=== PATIENT | female | born 1985 | race Caucasian/White ===

== ENCOUNTER → 2017-03-04 | Outpatient (CLI) | payer BC ==
[2017-03-04 13:00] LABS: VITAMIN D 25-HYDROXY 88.4 NG/ML (30-100)
== END ==
LOC: MOB LAB 11:27
PROVIDERS: ATTEND Nurse Practitioner Family
DX: R53.82 Chronic fatigue, unspecified (principal); E03.9 Hypothyroidism, unspecified
CPT/HCPCS: 36415; 82306; 84443

== ENCOUNTER → 2017-03-25 | Outpatient (CLI) | payer BC ==
--- NOTE | 2017-03-25 10:44 | EKG ---
[address] [address] Measurements Intervals [place] Rate: 71 P: -18 [place]: 127 QRS: -26 QRSD: 102 T: 11 QT: 409 QTc: 431 Interpretive Statements SINUS RHYTHM BORDERLINE LEFT AXIS DEVIATION [QRS AXIS < -20] Compared to ECG 06/23/2016 01:12:54 No significant changes Electronically Signed On 03-28-17 07:54:31 MDT by Elliott Lopez MD [id number]
== END ==
LOC: MOB EKG 10:31
PROVIDERS: ATTEND Nurse Practitioner Family
DX: I10 Essential (primary) hypertension (principal); F41.1 Generalized anxiety disorder; F17.200 Nicotine dependence, unspecified, uncomplicated
CPT/HCPCS: 93005; 93010

== ENCOUNTER 2018-07-13 16:51 | Observation (INO) ==
--- NOTE | 2018-07-13 17:08 | PDOC ---
Nausea/Vomiting/Diarrhea HPI - General Chief Complaint: Nausea / Vomiting / Diarrhea Stated Complaint: N/V/D FLANK PAIN Date Seen by Provider: 07/13/18 Time Seen by Provider: 17:00 Source: POSITIVE: Patient Exam Limitations: POSITIVE: No limitations Nurse's Notes Reviewed & Considered: Yes - History of Present Illness Initial Comments: This is a well-developed, well-nourished, 33-year-old female, complaining of abdominal pain with nausea vomiting and diarrhea. Patient awoke at 0500 hrs. this morning to come to work. As she was showering she developed abdominal pain with nausea vomiting and then diarrhea. She's had over 9 episodes of vomiting today and her pain has gotten worse. She denies any headache, no sore throat, no chest pain or shortness of breath, no hematuria or dysuria, no rashes. Patient is also complaining of bilateral hip pain. Body Location Affected: REPORTS: Abdomen Timing: REPORTS: Abrupt Duration: <24 hours Severity: Severe Quality: REPORTS: Cramping, "Pain", Sharpness, Tenderness Abdominal Pain Onset Location: REPORTS: Generalized abdomen Abdominal Pain Radiation: REPORTS: RUQ, LUQ, Epigastric Context: REPORTS: None Modifying Factors: improves with: Nothing Associated Symptoms: REPORTS: Frequent Vomiting, Diarrhea, Abdominal Pain, Cramping, Epigastric Pain, RUQ Pain, LUQ Pain Similar Symptoms Previously: No Recent Care Received: REPORTS: Denies Any Prior Injuries Related to Current Complaint?: No - Patient Home Medications Home Medications: Home Medications Cyanocobalamin/Folic Acid [B-12 1,000 Mcg Sub Tablet] 1 ea SL DAILY tab biotin 10,000 mcg capsule 10,000 mcg PO QDAY ea 11/01/17 calcium carbonate 500 mg calcium (1,250 mg) tablet 500 mg PO DAILY tab calcium phosphate-vitamin D3 250 mg calcium-500 unit chewable tablet 1 tab PO DAILY 11/01/17 cholecalciferol (vitamin D3) 2,000 unit/drop oral drops 2,000 unit PO QDAY 11/01 pyridoxine (vitamin B6) 50 mg tablet 50 mg PO QDAY 11/02/17 thiamine mononitrate (vitamin B1) 100 mg tablet 100 mg PO DAILY 11/02/17 norgestimate 0.25 mg-ethinyl estradiol 35 mcg tablet 1 tab PO QDAY #28 tab 06/14 /18 levothyroxine 75 mcg tablet 75 mcg PO DAILY #30 tab 02/23/18 amlodipine 2.5 mg tablet 2.5 mg PO DAILY #90 tab 04/20/18 clonazepam 1 mg tablet 0.5 mg PO QDAY PRN #30 tab 04/20/18 hydrocodone 7.5 mg-acetaminophen 325 mg tablet 1 tab PO Q6H PRN #45 tab escitalopram 10 mg tablet 10 mg PO DAILY #30 tab 06/21/18 Spironolactone 25 mg PO BEDTIME 07/13/18 - Patient Allergies Allergies/Adverse Reactions: Allergies 3 Allergy/AdvReac Type Severity Reaction Status Date / Time Penicillins Allergy Intermediate hives/swell Verified 07/13/18 17:01 ing buspirone HCl [From BuSpar] AdvReac Intermediate NOT Verified 07/13/18 17:01 APPLICABLE NSAIDS (Non-Steroidal AdvReac NOT Verified 07/13/18 17:01 Anti-Inflamma APPLICABLE Past Medical History - heen HEENT History: Denies History Cardiovascular History: Hypertension, Hyperlipidemia Respiratory History: Denies History Gastrointestinal History: Irritable Bowel Syndrome, Gallbladder Disease Genitourinary History: Denies History Endocrine History: Hypothyroidism Additional Endocrine History: INSULIN RESISTANCE Musculoskeletal History: Denies History Prosthesis or Implant: No Neurological History: Denies History Blood Disorders: Denies History Psychiatric History: Anxiety Disorders History of Sexually Transmitted Diseases: No Cancer History: Denies History History of MDRO: No History of Other Communicable Diseases: No Alcohol Use: Occasionally In the Past 12 Months, Have Used or Abuse Any Substance: None Previous Surgical History: Yes Type / Date of Surgery: TONSILLECTOMY. DENTAL Anesthesia Reactions: No Malignant Hyperthermia: No Significant Family History: Cancer, Hypertension ROS - Limitations ROS Limitations: No Limitations Constitution: REPORTS: Chills, Diaphoresis Cardiovascular: REPORTS: Denies Cardiac Symptoms Respiratory: REPORTS: Denies Resp Symptoms Neurological: REPORTS: Denies Neuro Symptoms Gastrointestinal: REPORTS: Abdominal Pain, Nausea, Vomitting, Diarrhea Endocrine: REPORTS: Denies Symptoms Musculoskeletal: REPORTS: Joint Pain (Bilateral hip pain) Genitourinary: REPORTS: Denies Symptoms Eyes: REPORTS: Denies Symptoms ENT: REPORTS: Denies Symptoms Skin: REPORTS: Denies Skin Symptoms Lympathic: REPORTS: Denies Lympathic Symptoms Immunologic: POSITIVE: Denies Symptoms Psychiatric: POSITIVE: Denies Psych Symptoms Nausea/Vomiting/Diarrhea Exam - General Appearance General Appearance: POSITIVE: Alert, Cooperative, No Evidence of Trauma, Severe Distress - HEENT HEENT: POSITIVE: Head Inspection Nml, Eyes Inspection Nml, Ears Inspection Nml, Nose Inspection Nml, Oral/Dental Inspect. Nml, Pharynx Inspect. Nml, PERRL, EOMI - Neck Neck: POSITIVE: Supple, Normal Inspection - Respiratory Respiratory: POSITIVE: No Respiratory Distress, Breath Sounds Normal, Chest Non- Tender - Cardiovascular Cardiovascular: POSITIVE: Regular Rate and Rhythm, Heart Sounds Normal, Strong Pulses Peripheral Pulses: Radial (R): 4+ - Chest Chest: POSITIVE: Non Tender - Abdomen Abdomen: Soft: (All Quadrants), (RLQ), (LLQ), No Splenomegaly: (All Quadrants), No Hepatomegaly: (All Quadrants), No Rebound: (All Quadrants), No Palpable Pulse : (All Quadrants), No Palpabale Mass: (All Quadrants), No Distention: (All Quadrants), No Rigidity: (All Quadrants), Tenderness Noted: (LUQ), (RUQ), Guarding: (All Quadrants) - Back Back: POSITIVE: Normal Inspection - Skin Skin: POSITIVE: Intact, Normal For Race, Warm, Dry, No Rash - Extremities Extremity: Non-Tender: (All Extremities), Normal ROM: (All Extremities), Normal Inspection: (All Extremities), Pelvis Stable: (All Extremities) - Neurological / Psychological Neurological: POSITIVE: Affect Apporpriate, Oriented X3, Motor Normal, Sensation Normal N/V/D Progress - Results Reviewed by me Xrays/CTs/US Reviewed by me: Yes Discussed with Radiologist: Yes Lab Results Reviewed by Me: Yes CBC and BMP: 07/13/18 17:15 07/13/18 17:15 Lab Results:: Laboratory Results 3 07/13/18 07/13/18 07/13/18 17:07 17:15 17:15 WBC 9.15 RBC 5.06 Hgb 14.7 Hct 44.8 MCV 88.5 MCH 29.1 MCHC 32.8 L RDW Std Deviation 45.2 RDW Coeff of Essie 14.2 Plt Count 206 MPV 11.6 Immature Gran % (Auto) 0.1 Neut % (Auto) 82.2 H Lymph % (Auto) 11.5 Darke % (Auto) 3.4 L Eos % (Auto) 2.6 Baso % (Auto) 0.2 Immature Gran # (Auto) 0.01 Neut # (Auto) 7.52 Lymph # (Auto) 1.05 Darke # (Auto) 0.31 Eos # (Auto) 0.24 Baso # (Auto) 0.02 WBC Morphology Comment Normal morphology Plt Morphology Comment Normal morphology RBC Morph Comment Normal morphology D-Dimer VBG pH 7.42 VBG pCO2 34 L VBG HCO3 22 VBG Base Excess -3 L Sodium 141 Potassium 4.0 Chloride 109 Carbon Dioxide 23 Anion Gap 9 BUN 12 Creatinine 0.5 Estimated GFR > 60 BUN/Creatinine Ratio 24.00 H Glucose 101 Calculated Osmolality 291.0 Lactic Acid Calcium 9.1 Magnesium 2.1 Total Bilirubin 1.2 AST 25 ALT 28 Alkaline Phosphatase 53 CK-MB (CK-2) Troponin I Handheld C-Reactive Protein 2.7 H NT-Pro-B Natriuret Pep 75.1 Total Protein 6.3 Albumin 3.9 Globulin 2.4 L Albumin/Globulin Ratio 1.60 Amylase 50 Lipase 86 TSH Serum HCG, Qual 3 07/13/18 07/13/18 07/13/18 17:15 17:15 17:15 WBC RBC Hgb Hct MCV MCH MCHC RDW Std Deviation RDW Coeff of Essie Plt Count MPV Immature Gran % (Auto) Neut % (Auto) Lymph % (Auto) Darke % (Auto) Eos % (Auto) Baso % (Auto) Immature Gran # (Auto) Neut # (Auto) Lymph # (Auto) Darke # (Auto) Eos # (Auto) Baso # (Auto) WBC Morphology Comment Plt Morphology Comment RBC Morph Comment D-Dimer VBG pH VBG pCO2 VBG HCO3 VBG Base Excess Sodium Potassium Chloride Carbon Dioxide Anion Gap BUN Creatinine Estimated GFR BUN/Creatinine Ratio Glucose Calculated Osmolality Lactic Acid 1.1 Calcium Magnesium Total Bilirubin AST ALT Alkaline Phosphatase CK-MB (CK-2) Troponin I Handheld C-Reactive Protein NT-Pro-B Natriuret Pep Total Protein Albumin Globulin Albumin/Globulin Ratio Amylase Lipase TSH 0.486 Serum HCG, Qual Negative 3 07/13/18 07/13/18 07/13/18 17:29 17:29 17:29 WBC RBC Hgb Hct MCV MCH MCHC RDW Std Deviation RDW Coeff of Essie Plt Count MPV Immature Gran % (Auto) Neut % (Auto) Lymph % (Auto) Darke % (Auto) Eos % (Auto) Baso % (Auto) Immature Gran # (Auto) Neut # (Auto) Lymph # (Auto) Darke # (Auto) Eos # (Auto) Baso # (Auto) WBC Morphology Comment Plt Morphology Comment RBC Morph Comment D-Dimer 0.65 H VBG pH VBG pCO2 VBG HCO3 VBG Base Excess Sodium Potassium Chloride Carbon Dioxide Anion Gap BUN Creatinine Estimated GFR BUN/Creatinine Ratio Glucose Calculated Osmolality Lactic Acid Calcium Magnesium Total Bilirubin AST ALT Alkaline Phosphatase CK-MB (CK-2) 0.65 Troponin I Handheld 0.000 C-Reactive Protein NT-Pro-B Natriuret Pep Total Protein Albumin Globulin Albumin/Globulin Ratio Amylase Lipase TSH Serum HCG, Qual EKG Interpreted/Reviewed By Me:: Yes (sinus rhythm at 89 beats a minute no ST elevations.) EKG Interpretation:: POSITIVE: Normal Sinus Rhythm, Normal ST/T - Patient's Progress Pain Medication Addressed: POSITIVE: Yes Status: POSITIVE: Improved MDM / ED Course: Patient was evaluated, an IV started, blood drawn and sent to the lab for studies, CT and EKG were obtained. Findings: CBC is within normal limits. D-dimer 0.65. Blood gases show pH is 7.42, PCO2 34, HCO3 22, base excess of -3. Magnesium is 2.1. Lactic acid is 1.1. EKG, per my interpretation, shows a sinus rhythm with a rate of 89 beats a minute and no ST elevations. Cardiac enzymes show a CK-MB of 0.65, troponin of 0.000. CMP is unremarkable. CRP is elevated at 2.7. BNP is normal at 7.5. Amylase is 50, lipase is 86. Beta hCG is negative. TSH is normal at 0.486. CT scan of her abdomen shows a 5 x 6 x [address] scan of her chest shows no acute cardiopulmonary decompensation. Assessment: #1 nausea vomiting and diarrhea. #2 abdominal pain. #3 ovarian cyst. #4 chest pain with normal enzymes and EKG. Plan: Patient being admitted for rule out myocardial infarction and for intractable abdominal pain. - Consult Consult (If Yes, Name of Consulting MD & Time Called): Yes (Dr. Esparza) Consulting MD will see pt:: POSITIVE: [facility] [place] Counseled: POSITIVE: Patient, Family, RE: Lab Results, RE: Radiology Results, RE : DX, RE: Need for F/U Patient Care Time - Estimated PCT Patient Care Time (In Minutes): 45 Vital Signs - Recent Vital Signs Vital Signs: Vital Signs (Last 8 hours) Temp Pulse Resp BP Pulse Ox 07/13/18 16:58 97.7 F 83 20 120/79 97 - VS Reviewed Vital Signs Reviewed: Yes Discharge Clinical Impression: Chest pain, Abdominal pain, Nausea and vomiting, Diarrhea, Ovarian cyst Discharge Disposition: Admit to Observation Condition: Stable Date Decision to Admit to Inpatient: 07/13/18 Time Decision to Admit to Inpatient: 19:29
[2018-07-13] MEDS ORDERED: MORPHINE SULFATE 4 MG/1 ML IVP ONE (17:09)
[2018-07-13] MEDS ORDERED: ONDANSETRON 4 MG/2 ML VIAL IVP ONE (17:09)
[2018-07-13] MEDS ORDERED: Sodium Chloride 0.9% 1,000 ML PRIMARY IV ONE ×2 (17:09→18:04)
[2018-07-13 17:16] LABS: BASOPHILS # (AUTO) 0.02 10*3/UL; BASOPHILS % (AUTO) 0.2 % (0-1); EOSINOPHILS # (AUTO) 0.24 10*3/UL; EOSINOPHILS % (AUTO) 2.6 % (0-8); Hematocrit [HCT] 44.8 % (37.0-47.0); Hemoglobin [HGB] 14.7 g/dL (12.0-16.0); LYMPHOCYTES # (AUTO) 1.05 10*3/uL; MEAN CORPUSCULAR HEMOGLOBIN 29.1 PG (27-31); MEAN CORPUSCULAR HGB CONC 32.8 g/dL (33-37); MEAN CORPUSCULAR VOLUME 88.5 FL (81-99); MEAN PLATELET VOLUME 11.6 FL (7.4-12.2); MONOCYTES # (AUTO) 0.31 10*3/UL (0.3-0.8); MONOCYTES % (AUTO) 3.4 % (5-15); NEUTROPHILS # (AUTO) 7.52 10*3/UL; NEUTROPHILS % (AUTO) 82.2 % (50-80); RED BLOOD COUNT 5.06 10^6/uL (4.20-5.40)
[2018-07-13 17:17] LABS: VENOUS PH 7.42 (7.32-7.42)
[2018-07-13 17:25] LABS: BLOOD UREA NITROGEN 12 mg/dL (7-22); LIPASE 86 IU/L (23-300); SERUM ALBUMIN 3.9 g/dL (3.5-4.8)
[2018-07-13] MEDS ORDERED: ASPIRIN 81 MG (BABY) CHEWABLE TABLET PO ONE (17:29)
[2018-07-13] MEDS ORDERED: NITROGLYCERIN 0.4 MG SL TAB (BOTTLE OF 3) SL ONE (17:29)
[2018-07-13] MEDS ORDERED: Belladon/PHENobarbital Elixir 10 ML, Lidocaine Viscous Liquid 2% 15 ML, Mag Hyd/Al Hyd/... PO ONE ×3 (17:32)
--- NOTE | 2018-07-13 17:34 | EKG ---
Measurements Intervals [place] Rate: 89 P: 242 [place]: 117 QRS: -21 QRSD: 106 T: 34 QT: 368 QTc: 415 Interpretive Statements JUNCTIONAL RHYTHM BORDERLINE LEFT AXIS DEVIATION [QRS AXIS < -20] ABNORMAL RHYTHM ECG Compared to ECG 01/13/2018 15:21:43 Junctional rhythm now present Sinus rhythm no longer present Poor R-wave progression no longer present Electronically Signed On 07-14-18 08:15:11 MST by Elliott Lopez MD [email or web address]
[2018-07-13 17:38] LABS: PLATELET MORPHOLOGY COMMENT NORMAL MORPHOLOGY (NORM); RBC MORPHOLOGY COMMENT NORMAL MORPHOLOGY (NORM); WBC MORPHOLOGY COMMENT NORMAL MORPHOLOGY (NORM)
[2018-07-13] MEDS ORDERED: fentaNYL Inj 100 MCG/2 ML VIAL IVP ONE ×2 (17:55→18:30)
--- NOTE | 2018-07-13 18:54 | DI ---
CT ANGIOGRAM OF THE CHEST, 07/13/2018 5:54 PM : Clinical History: Chest pain. Previous Exam: 06/23/2016. Scans are performed from the base of the neck to the lower lung bases with IV contrast. 75 mL of Isov ue 370 was injected IV. Proprietary automated bolus tracking software was used to verify the timing o f the injection. The base of the neck and thoracic inlet are normal. There are no abnormal axillary, supraclavicular, mediastinal, or hilar nodes. The heart is normal. The pulmonary arteries are normal. There is no pulm onary arterial hypertension. There is no evidence of pulmonary embolism or pulmonary infarction. The lungs are clear and there are no pulmonary nodules or masses. There is severe kyphosis of the upper t horacic spine with an old T10 compression fracture. 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 The bones appear osteoporotic. READIN. Normal CTA of the chest. There are no pulmonary emboli or pulmonary infarcts. 2. Severe upper thoracic kyphosis with an old compression fracture of T10
[2018-07-13] MEDS ORDERED: HYDROmorphone 2 MG/1 ML IVP ONE ×2 (18:56→19:23)
--- NOTE | 2018-07-13 19:10 | DI ---
CT ABDOMEN SCAN WITH IV CONTRAST, 07/13/2018 5:09 PM : Clinical History: Abdominal pain. Nausea, vomiting, and diarrhea. Previous Exam: None at this facility. IV Contrast: Same bolus used for CTA of the chest. Oral Contrast: No oral contrast ordered. Rectal Contrast: No rectal contrast ordered. Lungs: No infiltrate or effusion. Stomach: Status post gastric bypass surgery. No obstruction. No internal hernia. Liver: Hepatomegaly. Fatty infiltration. Gallbladder: Status post cholecystectomy. Common duct measures 6 mm. Adrenal Glands: Normal. Spleen: Splenomegaly. Pancreas: Normal. Kidneys: Normal size, shape, position and contour. No hydronephrosis or hydroureter. No renal or uret eral calculi. Lymph Nodes: Normal. Ascites: No ascites. READIN. Hepatosplenomegaly with mild-moderate diffuse fatty infiltration of the liver. 2. Status post gastric bypass surgery without evidence of obstruction or an internal hernia. CT PELVIS SCAN WITH IV CONTRAST, 07/13/2018 5:09 PM: Clinical History: See above. Previous Exam: None at this facility. Contrast: Same bolus of contrast used for CT scans of the chest and abdomen. Masses: No masses or enhancing lesions. Ascites: None. Lymph Nodes: No adenopathy. Appendix: Normal. Small Bowel: Normal small bowel, terminal ileum, and ileocecal valve. Colon: Normal. Hernias: None. Uterus: Normal. Ovaries: Enlarged: Left ovary measures 20 x 40 x 50 mm; right ovary measures 30 x 40 x 40 mm. Low-den sity 50 x 60 x 60 mm right ovary cystic lesion consistent with an ovarian cyst READIN. 50 x 60 x 60 mm low-density cystic lesion of the right ovary consistent with an ovarian cyst. Bot h ovaries are mildly enlarged. 2. No bowel obstruction or inflammatory disease of the colon.
[2018-07-13] MEDS ORDERED: HYDROcodone-APAP 7.5 MG-325 MG TABLET PO PRN (20:20)
[2018-07-13] MEDS ORDERED: ClonazePAM Tab 1 MG TABLET PO PRN (20:20)
[2018-07-13] MEDS ORDERED: ONDANSETRON 4 MG/2 ML VIAL IVP PRN (20:20)
[2018-07-13] MEDS ORDERED: LIDOCAINE W/ SODIUM BICARB 0.5 ML SYR SUBD PRN (20:20)
[2018-07-13] MEDS ORDERED: NITROGLYCERIN 0.4 MG SL TAB (BOTTLE OF 3) SL PRN (20:20)
[2018-07-13] MEDS ORDERED: CALCIUM CARBONATE 500 MG (TUMS) CHEWABLE TABLET PO PRN (20:20)
[2018-07-13] MEDS ORDERED: LORazepam 2 MG/1 ML VIAL IVP ONE (20:27)
[2018-07-13] MEDS ORDERED: PANTOPRAZOLE IV 40 MG VIAL IVP ONE (20:49)
--- NOTE | 2018-07-13 21:28 | PDOC ---
HPI - History of Present Illness Date of Service: 07/13/18 Time of Service: 21:22 Chief Complaint: Abdominal pain and chest pressure History of Present Illness: This very pleasant 33-year-old female with known right congenital dysplasia of the hip, morbid obesity status post gastric sleeve done in [place], hypertension , polycystic ovarian syndrome, and osteomyelitis of the jaw 2 who presents accompanied with her mother here this evening with complaints of acute onset of abdominal pain earlier this morning. The patient tried to work but couldn't. She stated that she had multiple episodes of vomiting through the day. She denied fever. Did complain of diarrhea. The pain is been a cramping like her squeezing nature and it comes and goes and has been quite severe. When the patient came to the emergency room, she was given morphine initially but then developed some chest pressure and she was given nitroglycerin as well. Her pain persisted despite repeated narcotics of morphine and Dilaudid. She states that she had a similar episode of chest pain back in January 2018, but this episode is worse. She's never had a stress test before. Initial troponin is negative and lipase is negative. She's had a cholecystectomy in the past. CT scan of the abdomen and pelvis showed some ovarian cysts bilaterally. It is unclear what made the pain better or worse. When asked the patient about her diet, she states that she mostly drinks for protein shakes a day, kidney most foods like mashed potatoes and Jell-O, but she admits to having chili last night and that was the last meal she had prior to onset of symptoms. She states that the chili was spicy. The patient's mother felt that the patient was probably a little on the anxious side and the patient has known anxiety disorder. She is on Lexapro for that. The patient did feel a little bit better after Ativan here and stated that she felt a little calmer. She tried Pepto-Bismol but that did not help at home. Has not had any prior endoscopy that I am aware of. Past Medical History Medical History: 1. Hypertension. 2. Hypothyroidism. 3. Polycystic ovaries. 4. Tobacco abuse. 5. Osteomyelitis of the jaw 2. 6. Congenital dysplasia of hip, right side. 7. Morbid obesity status post gastric sleeve September 2017 in [place] Surgical History: 1. History of cholecystectomy. 2. History of tonsillectomy. 3. Multiple dental procedures and tooth extractions. 4. Gastric sleeve done in [place] in September 2017 Family History: Reviewed an Not Pertinent Pertinent Family History: No history of heart disease in the family Past Social History: Smokes. Does not drink alcohol. Admits to a remote history of marijuana abuse but does not use actively at this time. 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 Not . No children. Tobacco Use: Current Some Day Smoker In the Past 12 Months, Have Used or Abuse Any of the Following Substance: None Alcohol Use: None Medication / Allergies Home Medications: Home Medications 3 Medication Instructions Recorded Confirmed Type Cyanocobalamin/Folic Acid [B-12 1 ea SL DAILY tab 02/13/14 07/13/18 History 1,000 Mcg Sub Tablet] biotin 10,000 mcg capsule 10,000 mcg PO QDAY ea 11/01/17 07/13/18 History calcium carbonate 500 mg calcium 500 mg PO DAILY tab 11/01/17 07/13/18 History (1,250 mg) tablet calcium phosphate-vitamin D3 250 1 tab PO DAILY 11/01/17 07/13/18 History mg calcium-500 unit chewable tablet cholecalciferol (vitamin D3) 2,000 2,000 unit PO QDAY 11/01/17 07/13/18 History unit/drop oral drops pyridoxine (vitamin B6) 50 mg 50 mg PO QDAY 11/02/17 07/13/18 History tablet thiamine mononitrate (vitamin B1) 100 mg PO DAILY 11/02/17 07/13/18 History 100 mg tablet norgestimate 0.25 mg-ethinyl 1 tab PO QDAY #28 tab 02/16/18 07/13/18 Rx estradiol 35 mcg tablet levothyroxine 75 mcg tablet 75 mcg PO DAILY #30 tab 02/23/18 07/13/18 Rx amlodipine 2.5 mg tablet 2.5 mg PO DAILY #90 tab 04/20/18 07/13/18 Rx clonazepam 1 mg tablet 0.5 mg PO QDAY PRN #30 tab 04/20/18 07/13/18 Rx hydrocodone 7.5 mg-acetaminophen 1 tab PO Q6H PRN #45 tab 06/07/18 07/13/18 Rx 325 mg tablet escitalopram 10 mg tablet 10 mg PO DAILY #30 tab 06/21/18 07/13/18 Rx Spironolactone 25 mg PO BEDTIME 07/13/18 07/13/18 History Allergies/Adverse Reactions: Allergies 3 Allergy/AdvReac Type Severity Reaction Status Date / Time Penicillins Allergy Intermediate hives/swell Verified 07/13/18 17:01 ing buspirone HCl [From BuSpar] AdvReac Intermediate NOT Verified 07/13/18 17:01 APPLICABLE NSAIDS (Non-Steroidal AdvReac NOT Verified 07/13/18 17:01 Anti-Inflamma APPLICABLE Review of Systems - Review of Systems All Systems: Reviewed & No Additional Complaints Except as Stated (I did a 12 point review systems and other than that discussed in history present illness, the review systems is negative. Exceptions noted below.) - Constitutional Constitutional: REPORTS: Weight Loss (140 pounds. Intentional with gastric sleeve done in September 2017) - Gastrointestinal Gastrointestinal / Abdominal: REPORTS: Nausea, Vomiting, Diarrhea, Abdominal Pain - Additonal Details Additional ROS Details: Had some dizziness and lightheadedness which has resolved every time her blood pressure medication has been dropped or reduced. Exam - Vitals Vital Signs: Vital Signs Temperature 98.2 F Temperature Source Temporal Artery Scan Pulse Rate [Pulse Oximeter 94 Right] Respiratory Rate 24 Blood Pressure [Left Arm] 139/77 Pulse Ox 95 Oxygen Delivery Method Room Air Height 5 ft 6.5 in Weight 221 lb 1 oz - General General Appearance: No Acute Distress, Cooperative Additional General Exam Details: Appears to be in pain. - Head Head Exam: Normal Inspection, Normocephalic, Atraumatic - Eye Eye Exam: POSITIVE: No Scleral Icterus - ENT ENT Exam: POSITIVE: Mucous Membranes Moist - Neck Neck Exam: Normal Inspection, No Tenderness, No Lymphadenopathy, No Thyromegaly , JVP is not Raised - Respiratory Respiratory Exam: POSITIVE: Clear to Auscultation - Bilaterally, Breathing Non Labored, Normal to Percussion and Palpation - Cardiovascular Cardiovascular Exam: POSITIVE: RRR, No Murmur, No Clicks, No Gallops, No Rubs, No JVD - GI/Abdominal GI/Abdominal Exam: POSITIVE: Normal Bowel Sounds, Non Tender (I could not really elicit tenderness with palpation of the abdomen.), Non Distended, Soft - Rectal Rectal Exam: POSITIVE: Deferred - External Exam: POSITIVE: Deferred Exam: POSITIVE: Deferred - Extremities Extremities Exam: POSITIVE: No Clubbing Present, No Edema Present, No Cyanosis Present - Back Back Exam: POSITIVE: No CVA Tenderness - Neurological Neurological Exam: POSITIVE: Alert, Oriented x 3, No Facial Droop, Speech Intact / Clear, Moves All Extremities Equally - Psychiatric Psychiatric Exam: POSITIVE: Anxious - Integumentary Integumentary Exam: POSITIVE: Normal Color, Warm, Dry, Intact Results - Labs CBC and BMP: 07/13/18 17:15 07/13/18 17:15 Additional Lab Results: Laboratory Results 07/13/18 07/13/18 07/13/18 Range/Units 17:07 17:15 17:15 WBC 9.15 (4.8-10.8) 10^3/uL RBC 5.06 (4.20-5.40) 10^6/uL Hgb 14.7 (12.0-16.0) g/dL Hct 44.8 (37.0-47.0) % MCV 88.5 (81-99) FL MCH 29.1 (27-31) PG MCHC 32.8 L (33-37) g/dL RDW Std Deviation 45.2 (39-50) fL RDW Coeff of Sesie 14.2 (11.5-14.5) % Plt Count 206 (140-350) 10*3/uL MPV 11.6 (7.4-12.2) FL Immature Gran % (Auto) 0.1 (0-5) % Neut % (Auto) 82.2 H (50-80) % Lymph % (Auto) 11.5 (10-50) % [place] % (Auto) 3.4 L (5-15) % Eos % (Auto) 2.6 (0-8) % Baso % (Auto) 0.2 (0-1) % Immature Gran # (Auto) 0.01 10*3/UL Neut # (Auto) 7.52 10*3/UL Lymph # (Auto) 1.05 10*3/uL [place] # (Auto) 0.31 (0.3-0.8) 10*3/UL Eos # (Auto) 0.24 10*3/UL Baso # (Auto) 0.02 10*3/UL WBC Morphology Comment Normal morphology (NORM) Plt Morphology Comment Normal morphology (NORM) RBC Morph Comment Normal morphology (NORM) D-Dimer (0.00-0.59) mg/L VBG pH 7.42 (7.32-7.42) VBG pCO2 34 L (45-55) mmHg VBG HCO3 22 (22-26) mmol/L VBG Base Excess -3 L (-2-2) MMOL/L Sodium 141 (135-145) meq/L Potassium 4.0 (3.8-5.2) meq/L Chloride 109 (98-112) meq/L Carbon Dioxide 23 (23-33) meq/L Anion Gap 9 (5-20) BUN 12 (7-22) mg/dL Creatinine 0.5 (0.50-1.20) mg/dL Estimated GFR > 60 (>60 ml/min/1.73m(2)) BUN/Creatinine Ratio 24.00 H (6-20) Glucose 101 (78-110) mg/dL Calculated Osmolality 291.0 (267-292) mOsm/kg Lactic Acid (0.70-2.10) MMOL/L Calcium 9.1 (8.7-10.7) mg/dL Magnesium 2.1 (1.6-2.4) mg/dL Total Bilirubin 1.2 (0.3-1.2) mg/dL AST 25 (8-39) IU/L ALT 28 (9-52) IU/L Alkaline Phosphatase 53 (38-126) IU/L CK-MB (CK-2) (0.00-5.00) NG/ML Troponin I Handheld (< 0.040) ng/mL Troponin I (< 0.040) ng/mL C-Reactive Protein 2.7 H (0.0-0.9) mg/dL NT-Pro-B Natriuret Pep 75.1 (0-125) PG/ML Total Protein 6.3 (6.1-8.0) g/dL Albumin 3.9 (3.5-4.8) g/dL Globulin 2.4 L (2.50-4.10) g/dL Albumin/Globulin Ratio 1.60 (1.3-2.0) mg/g Amylase 50 (30-110) U/L Lipase 86 (23-300) IU/L TSH (0.2700-4.2000) uIU/mL Serum HCG, Qual 07/13/18 07/13/18 07/13/18 Range/Units 17:15 17:15 17:15 WBC (4.8-10.8) 10^3/uL RBC (4.20-5.40) 10^6/uL Hgb (12.0-16.0) g/dL Hct (37.0-47.0) % MCV (81-99) FL MCH (27-31) PG MCHC (33-37) g/dL RDW Std Deviation (39-50) fL RDW Coeff of Essie (11.5-14.5) % Plt Count (140-350) 10*3/uL MPV (7.4-12.2) FL Immature Gran % (Auto) (0-5) % Neut % (Auto) (50-80) % Lymph % (Auto) (10-50) % [place] % (Auto) (5-15) % Eos % (Auto) (0-8) % Baso % (Auto) (0-1) % Immature Gran # (Auto) 10*3/UL Neut # (Auto) 10*3/UL Lymph # (Auto) 10*3/uL [place] # (Auto) (0.3-0.8) 10*3/UL Eos # (Auto) 10*3/UL Baso # (Auto) 10*3/UL WBC Morphology Comment (NORM) Plt Morphology Comment (NORM) RBC Morph Comment (NORM) D-Dimer (0.00-0.59) mg/L VBG pH (7.32-7.42) VBG pCO2 (45-55) mmHg VBG HCO3 (22-26) mmol/L VBG Base Excess (-2-2) MMOL/L Sodium (135-145) meq/L Potassium (3.8-5.2) meq/L Chloride (98-112) meq/L Carbon Dioxide (23-33) meq/L Anion Gap (5-20) BUN (7-22) mg/dL Creatinine (0.50-1.20) mg/dL Estimated GFR (>60 ml/min/1.73m(2)) BUN/Creatinine Ratio (6-20) Glucose (78-110) mg/dL Calculated Osmolality (267-292) mOsm/kg Lactic Acid 1.1 (0.70-2.10) MMOL/L Calcium (8.7-10.7) mg/dL Magnesium (1.6-2.4) mg/dL Total Bilirubin (0.3-1.2) mg/dL AST (8-39) IU/L ALT (9-52) IU/L Alkaline Phosphatase (38-126) IU/L CK-MB (CK-2) (0.00-5.00) NG/ML Troponin I Handheld (< 0.040) ng/mL Troponin I (< 0.040) ng/mL C-Reactive Protein (0.0-0.9) mg/dL NT-Pro-B Natriuret Pep (0-125) PG/ML Total Protein (6.1-8.0) g/dL Albumin (3.5-4.8) g/dL Globulin (2.50-4.10) g/dL Albumin/Globulin Ratio (1.3-2.0) mg/g Amylase (30-110) U/L Lipase (23-300) IU/L TSH 0.486 (0.2700-4.2000) uIU/mL Serum HCG, Qual Negative 07/13/18 07/13/18 07/13/18 Range/Units 17:29 17:29 17:29 WBC (4.8-10.8) 10^3/uL RBC (4.20-5.40) 10^6/uL Hgb (12.0-16.0) g/dL Hct (37.0-47.0) % MCV (81-99) FL MCH (27-31) PG MCHC (33-37) g/dL RDW Std Deviation (39-50) fL RDW Coeff of Essie (11.5-14.5) % Plt Count (140-350) 10*3/uL MPV (7.4-12.2) FL Immature Gran % (Auto) (0-5) % Neut % (Auto) (50-80) % Lymph % (Auto) (10-50) % [place] % (Auto) (5-15) % Eos % (Auto) (0-8) % Baso % (Auto) (0-1) % Immature Gran # (Auto) 10*3/UL Neut # (Auto) 10*3/UL Lymph # (Auto) 10*3/uL [place] # (Auto) (0.3-0.8) 10*3/UL Eos # (Auto) 10*3/UL Baso # (Auto) 10*3/UL WBC Morphology Comment (NORM) Plt Morphology Comment (NORM) RBC Morph Comment (NORM) D-Dimer 0.65 H (0.00-0.59) mg/L VBG pH (7.32-7.42) VBG pCO2 (45-55) mmHg VBG HCO3 (22-26) mmol/L VBG Base Excess (-2-2) MMOL/L Sodium (135-145) meq/L Potassium (3.8-5.2) meq/L Chloride (98-112) meq/L Carbon Dioxide (23-33) meq/L Anion Gap (5-20) BUN (7-22) mg/dL Creatinine (0.50-1.20) mg/dL Estimated GFR (>60 ml/min/1.73m(2)) BUN/Creatinine Ratio (6-20) Glucose (78-110) mg/dL Calculated Osmolality (267-292) mOsm/kg Lactic Acid (0.70-2.10) MMOL/L Calcium (8.7-10.7) mg/dL Magnesium (1.6-2.4) mg/dL Total Bilirubin (0.3-1.2) mg/dL AST (8-39) IU/L ALT (9-52) IU/L Alkaline Phosphatase (38-126) IU/L CK-MB (CK-2) 0.65 (0.00-5.00) NG/ML Troponin I Handheld 0.000 (< 0.040) ng/mL Troponin I (< 0.040) ng/mL C-Reactive Protein (0.0-0.9) mg/dL NT-Pro-B Natriuret Pep (0-125) PG/ML Total Protein (6.1-8.0) g/dL Albumin (3.5-4.8) g/dL Globulin (2.50-4.10) g/dL Albumin/Globulin Ratio (1.3-2.0) mg/g Amylase (30-110) U/L Lipase (23-300) IU/L TSH (0.2700-4.2000) uIU/mL Serum HCG, Qual 07/13/18 07/13/18 Range/Units 20:43 20:43 WBC (4.8-10.8) 10^3/uL RBC (4.20-5.40) 10^6/uL Hgb (12.0-16.0) g/dL Hct (37.0-47.0) % MCV (81-99) FL MCH (27-31) PG MCHC (33-37) g/dL RDW Std Deviation (39-50) fL RDW Coeff of Essie (11.5-14.5) % Plt Count (140-350) 10*3/uL MPV (7.4-12.2) FL Immature Gran % (Auto) (0-5) % Neut % (Auto) (50-80) % Lymph % (Auto) (10-50) % [place] % (Auto) (5-15) % Eos % (Auto) (0-8) % Baso % (Auto) (0-1) % Immature Gran # (Auto) 10*3/UL Neut # (Auto) 10*3/UL Lymph # (Auto) 10*3/uL [place] # (Auto) (0.3-0.8) 10*3/UL Eos # (Auto) 10*3/UL Baso # (Auto) 10*3/UL WBC Morphology Comment (NORM) Plt Morphology Comment (NORM) RBC Morph Comment (NORM) D-Dimer (0.00-0.59) mg/L VBG pH (7.32-7.42) VBG pCO2 (45-55) mmHg VBG HCO3 (22-26) mmol/L VBG Base Excess (-2-2) MMOL/L Sodium (135-145) meq/L Potassium (3.8-5.2) meq/L Chloride (98-112) meq/L Carbon Dioxide (23-33) meq/L Anion Gap (5-20) BUN (7-22) mg/dL Creatinine (0.50-1.20) mg/dL Estimated GFR (>60 ml/min/1.73m(2)) BUN/Creatinine Ratio (6-20) Glucose (78-110) mg/dL Calculated Osmolality (267-292) mOsm/kg Lactic Acid (0.70-2.10) MMOL/L Calcium (8.7-10.7) mg/dL Magnesium (1.6-2.4) mg/dL Total Bilirubin (0.3-1.2) mg/dL AST (8-39) IU/L ALT (9-52) IU/L Alkaline Phosphatase (38-126) IU/L CK-MB (CK-2) (0.00-5.00) NG/ML Troponin I Handheld (< 0.040) ng/mL Troponin I < 0.012 (< 0.040) ng/mL C-Reactive Protein (0.0-0.9) mg/dL NT-Pro-B Natriuret Pep (0-125) PG/ML Total Protein (6.1-8.0) g/dL Albumin (3.5-4.8) g/dL Globulin (2.50-4.10) g/dL Albumin/Globulin Ratio (1.3-2.0) mg/g Amylase (30-110) U/L Lipase 95 (23-300) IU/L TSH (0.2700-4.2000) uIU/mL Serum HCG, Qual - EKG Data -: EKG Interpreted by Me Rate: Normal EKG Shows Normal: Sinus Rhythm - EKG Data EKG Interpretation: Other (Was read as a junctional rhythm. In the rhythm strip , there are inverted P waves.) - Imaging Status: Image Reviewed by Me (Chest CT scan negative for pneumonia on my view. I looked at the abdominal CT scan. I read the report from the radiologist as well.) Assessment and Plan - Patient Problems (1) Abdominal pain Current Visit: Yes Status: Acute Code(s): R10.9 - Unspecified abdominal pain (2) Nausea and vomiting Current Visit: Yes Status: Acute Code(s): R11.2 - Nausea with vomiting, unspecified (3) Chest pain Current Visit: Yes Status: Acute Code(s): R07.9 - Chest pain, unspecified Qualifiers: Chest pain type: unspecified Qualified Code(s): R07.9 - Chest pain, unspecified (4) Tobacco abuse Current Visit: Yes Status: Acute Code(s): Z72.0 - Tobacco use (5) Polycystic ovaries Current Visit: Yes Status: Chronic (6) Congenital dysplasia of hip Current Visit: Yes Status: Chronic Onset Date: 08/19/16 (7) Benign hypertension Current Visit: Yes Status: Chronic (8) Anxiety Current Visit: Yes Status: Acute Code(s): F41.9 - Anxiety disorder, unspecified - Assessment / Plan Additional Assessment/Plan Details: Admit the patient for observation. I'll do troponins to make sure that there is no evidence of acute myocardial infarction although I do not think this is related to the heart. She has reproducible pressure with chest palpation on exam with RN present in the room. It is very minor in nature and I think this is more abdominal pain related with some radiation. Overall with gastric sleeve, I wonder about potential stricture or ulcer despite use of omeprazole at home. I worry a little bit about omeprazole use with history of a gastric sleeve as this could cause more malabsorptive issues, but that as it is, I will go ahead and start Protonix and do that IV tonight and have 40 mg daily. After midnight the patient nothing by mouth. We'll consult surgery for consideration of EGD to look for potential ulcer or stricture given the pain pattern, intractable nausea and vomiting. Check labs in a.m. IV fluids. IV pain medications including Dilaudid and Tylenol. We will get the patient follow-up with obstetrics to review CT scan with the patient as well as determine a plan for PCOS and these particular cyst noted on CT scan. Plan above discussed with patient and her mother and they agreed with the plan above.
[2018-07-13] MEDS: HYDROmorphone 2 MG/1 ML IVP PRN (21:33)
[2018-07-13] MEDS ORDERED: Prochlorperazine Edisylate Inj 10mg/2ml vial IVP PRN (21:40)
[2018-07-13] MEDS: Spironolactone Tab 25 MG TAB PO SCH (21:46)
[2018-07-13] MEDS: Sodium Chloride 0.9% 1,000 ML PRIMARY IV SCH (21:46)
[2018-07-13] MEDS: Acetaminophen 1000mg Inj 1,000 MG/100 ML VIAL IV PRN (23:00)
[2018-07-14] MEDS: HYDROmorphone 2 MG/1 ML IVP PRN (01:14)
[2018-07-14] MEDS ORDERED: diphenhydrAMINE 25 MG CAPSULE PO PRN (02:40)
[2018-07-14] MEDS ORDERED: HYDROmorphone 2 MG/1 ML IVP PRN (02:42)
[2018-07-14 04:03] LABS: CHOL/HDL RATIO 2.5 RATIO (0-4.0)
[2018-07-14] MEDS: Sodium Chloride 0.9% 1,000 ML PRIMARY IV SCH ×2 (05:03→17:13)
[2018-07-14 05:40] LABS: AMPHETAMINE SCREEN NEGATIVE (NEG); CANNABINOID SCREEN,URINE NEGATIVE (NEG); COCAINE SCREEN NEGATIVE (NEG); METHADONE URINE SCREEN NEGATIVE (NEG); METHAMPHETAMINES SCREEN,URINE NEGATIVE (NEG); OPIATE SCREEN,URINE POSITIVE (NEG); URINE SAMPLE TYPE CLEAN CATCH URINE; URINE SPECIFIC GRAVITY - MAN > 1.050
[2018-07-14] MEDS: LEVOTHYROXINE 75 MCG TABLET PO SCH (07:10)
[2018-07-14] MEDS ORDERED: AmLODIPine Tab 2.5 MG TABLET PO SCH (09:00)
[2018-07-14] MEDS ORDERED: FOLIC ACID SL SCH (09:00)
[2018-07-14] MEDS ORDERED: PANTOPRAZOLE IV 40 MG VIAL IVP SCH (09:00)
[2018-07-14] MEDS ORDERED: CYANOCOBALAMIN SL SCH (09:00)
[2018-07-14] MEDS ORDERED: ALBUTEROL SULFATE 2.5 MG/3 ML NEB PRN (13:06)
--- NOTE | 2018-07-14 13:32 | DI ---
SINGLE CONTRAST UPPER GI SERIES, 07/14/2018 9:56 AM: Clinical History: Nausea. Vomiting. Abdominal pain. Status post gastric sleeve bariatric surgery. A "time out" session was performed to verify the patient's name and date of prior to initiating this procedure. The study was initially performed with Gastrografin. Upon determining there was no a nastomotic leak, the study was completed with barium sulfate. Deglutition is normal and there is no aspiration. The entire esophagus strips well. There is no esoph ageal ulcer, stricture, or evidence of esophagitis. There is no hiatal hernia. There is spontaneous r eflux noted to the cervical esophagus. There is a gastric pouch that has a normal appearance. It is a pproximately the size of a tennis ball. Immediately distal to the pouch and in the proximal sleeve ar e thickened, radiating folds with a classic peptic ulcer crater measuring about 9 mm in diameter. The remainder of the sleeve is unremarkable. The pyloric channel, duodenal bulb and proximal small bowel run off are normal. Readin. Status post gastric sleeve bariatric procedure. There is no evidence of an anastomotic leak. 2. There is a classic peptic ulcer crater measuring 9 mm in diameter with radiating folds located in the proximal portion and on the inferior margin of the surgically created sleeve. 3. Normal esophagus but gross reflux to the cervical esophagus.
[2018-07-14] MEDS: Sucralfate Tab 1 GM TAB PO SCH ×3 (14:34→21:55)
--- NOTE | 2018-07-14 15:55 | PDOC(PROG) ---
Date of Service: 07/14/18 Time of Service: 15:50 Interval History: Still has abdominal pain although a little better this morning. It's gotten a little worse this afternoon. Spoke with radiology and surgery. We did a Gastrografin small bowel follow-through and then barium was also used in the study and we found a peptic ulcer. No anastomotic leak. Chest pressure has resolved. No nausea or vomiting, but patient has had some intermittent diarrhea. Objective : Data - Labs CBC and BMP: 07/13/18 17:15 07/13/18 17:15 Additional Lab Results: 07/13/18 07/14/18 07/14/18 20:43 02:50 02:50 Troponin I < 0.012 < 0.012 Triglycerides 119 Cholesterol 105 L D LDL Cholesterol, Calc 39.200 VLDL Cholesterol 23 HDL Cholesterol 42 Cholesterol/HDL Ratio 2.50 - Imaging X-Ray Status: Report Reviewed by Me ( 1. Status post gastric sleeve bariatric procedure. There is no evidence of an anastomotic leak. 2. There is a classic peptic ulcer crater measuring 9 mm in diameter with radiating folds located in the proximal portion and on the inferior margin of the surgically created sleeve. 3. Normal esophagus but gross reflux to the cervical esophagus. These are the conclusions of the report dictated by the radiologist. I reviewed these reports) Objective : Exam - General General Appearance: No Acute Distress, Cooperative Additional General Exam Details: Vital Signs - Last Taken Temperature 97.4 F 07/14/18 12:45 Pulse Rate 70 07/14/18 12:45 Respiratory Rate 20 07/14/18 12:45 Blood Pressure 105/69 07/14/18 12:45 Pulse Ox 97 07/14/18 15:00 - Eye Eye Exam: No Scleral Icterus - ENT ENT Exam: Mucous Membranes Moist - Respiratory Respiratory Exam: Clear to Auscultation - Bilaterally, Breathing Non Labored - Cardiovascular Cardiovascular Exam: RRR, No Murmur, No Clicks, No Gallops, No Rubs, No JVD - GI/Abdominal GI/Abdominal Exam: Normal Bowel Sounds, Non Distended, Soft - Extremities Extremities Exam: No Clubbing Present, No Edema Present, No Cyanosis Present - Neurological Neurological Exam: Alert, Oriented x 3, No Facial Droop, Speech Intact / Clear, Moves All Extremities Equally - Psychiatric Psychiatric Exam: Normal Affect, Normal Mood Assessment and Plan - Patient Problems (1) Peptic ulcer disease Current Visit: Yes Status: Acute Code(s): K27.9 - Peptic ulcer, site unspecified, unspecified as acute or chronic, without hemorrhage or perforation (2) Abdominal pain Current Visit: Yes Status: Acute Code(s): R10.9 - Unspecified abdominal pain (3) Nausea and vomiting Current Visit: Yes Status: Resolved Code(s): R11.2 - Nausea with vomiting, unspecified (4) Chest pain Current Visit: Yes Status: Resolved Code(s): R07.9 - Chest pain, unspecified Qualifiers: Chest pain type: unspecified Qualified Code(s): R07.9 - Chest pain, unspecified (5) Tobacco abuse Current Visit: Yes Status: Acute Code(s): Z72.0 - Tobacco use (6) Polycystic ovaries Current Visit: Yes Status: Chronic (7) Congenital dysplasia of hip Current Visit: Yes Status: Chronic Onset Date: 08/19/16 (8) Benign hypertension Current Visit: Yes Status: Chronic (9) Anxiety Current Visit: Yes Status: Acute Code(s): F41.9 - Anxiety disorder, unspecified - Assessment / Plan Additional Assessment/Plan Details: I'm going ahead and put the patient on protonix drip overnight and see if she can get better control on the pain, Protonix twice a day from here on out for a while. I spoke with surgery and will get an outpatient appointment with Dr. Rice. The patient will likely need an EGD. He suggested Carafate and I' ve ordered that. I encouraged the patient to stop using narcotics for this pain as it could make things worse. Check for H. pylori in the stool. Check CBC in a.m. Hopefully home tomorrow. I did get the patient an appointment with Dr. Holliday to discuss ovarian cysts.
[2018-07-14] MEDS: CYANOCOBALAMIN (VITAMIN B-12) 1,000 MCG TABLET.ER PO SCH (17:11)
[2018-07-14] MEDS: Thiamine Tab 100 MG TAB PO SCH (17:11)
[2018-07-14] MEDS: CHOLECALCIFEROL 1000 IU TABLET PO SCH (17:12)
[2018-07-14] MEDS: PYRIDOXINE 25 MG PO SCH (17:12)
[2018-07-14] MEDS ORDERED: Sodium Chloride 0.9% 1,000 ML PRIMARY IV SCH (17:30)
[2018-07-14] MEDS: ESCITALOPRAM 10 MG TABLET PO SCH (17:57)
[2018-07-14] MEDS: Acetaminophen 1000mg Inj 1,000 MG/100 ML VIAL IV PRN (19:30)
[2018-07-14] MEDS: Spironolactone Tab 25 MG TAB PO SCH (21:55)
[2018-07-15] MEDS: LEVOTHYROXINE 75 MCG TABLET PO SCH (05:09)
[2018-07-15] MEDS: Sucralfate Tab 1 GM TAB PO SCH ×2 (07:15→11:41)
[2018-07-15] MEDS ORDERED: PANTOPRAZOLE 40 MG TABLET PO ONE (09:28)
[2018-07-15] MEDS: CHOLECALCIFEROL 1000 IU TABLET PO SCH (09:29)
[2018-07-15] MEDS: Thiamine Tab 100 MG TAB PO SCH (09:30)
[2018-07-15] MEDS: PYRIDOXINE 25 MG PO SCH (09:30)
[2018-07-15] MEDS: ESCITALOPRAM 10 MG TABLET PO SCH (09:30)
[2018-07-15] MEDS: CYANOCOBALAMIN (VITAMIN B-12) 1,000 MCG TABLET.ER PO SCH (09:30)
--- NOTE | 2018-07-15 09:40 | DCSUMMARY ---
Hospitalization Summary Admit Date: 07/13/2018 Discharge Date: 07/15/18 Primary Diagnosis:: peptic ulcer disease Hospital Course: Very pleasant 33-year-old female that came in with abdominal pain and chest pressure. She ruled out for myocardial infarction, she has had a history of gastric sleeve procedure done in the past. Workup ensued and discussion with surgery and we did an upper GI with small bowel follow-through and after no leak was confirmed with Gastrografin, this was done with barium and it showed a peptic ulcer. Patient was placed on protonic since and Carafate. Her pain did improve albeit she still had some cramping and abdominal discomfort when she ate this morning but not nearly as bad as when she came in. She would like to go home. I did not believe this was related to the heart. The symptoms really originated in the abdomen, with negative troponins, highly unlikely that it was coronary artery disease related and again, we found evidence that this was an ulcer. We did a stool study for H. pylori which is pending. The patient will follow with to study her this next week for possible upper GI to look at the ulcer. We did find incidentally that the patient had some ovarian cysts. We have arranged an appointment with her to see Dr. Holliday to discuss further. She has a known history of polycystic ovarian syndrome. Today, no chest pain and no shortness of breath. Wheezing and cough of completely resolved which I think are reflux related. Abdominal pain significantly improved. I do want to note that there was no evidence of any bleeding from this ulcer. Hemoglobin and hematocrit were stable and the patient did not have any black or tarry stool or blood in the stool. Assessment and Plan: 1. As per discharge assessments noted 2. Disposition: Patient is discharged home. 3. Condition on discharge, stable and improved. 4. Diet: regular diet 5. Activities: resume normal activities 6. Follow-Up: 1. Follow-up in one week with Meera Laboy 2. Dr. Rice this week 3. Dr. Holliday for ovarian cysts. 7. Medications at the Time of Discharge: Home Medications 3 Medication Instructions Recorded Confirmed Type Cyanocobalamin/Folic Acid [B-12 1 ea SL DAILY tab 02/13/14 07/13/18 History 1,000 Mcg Sub Tablet] biotin 10,000 mcg capsule 10,000 mcg PO QDAY ea 11/01/17 07/13/18 History calcium carbonate 500 mg calcium 500 mg PO DAILY tab 11/01/17 07/13/18 History (1,250 mg) tablet calcium phosphate-vitamin D3 250 1 tab PO DAILY 11/01/17 07/13/18 History mg calcium-500 unit chewable tablet cholecalciferol (vitamin D3) 2,000 2,000 unit PO QDAY 11/01/17 07/13/18 History unit/drop oral drops pyridoxine (vitamin B6) 50 mg 50 mg PO QDAY 11/02/17 07/13/18 History tablet thiamine mononitrate (vitamin B1) 100 mg PO DAILY 11/02/17 07/13/18 History 100 mg tablet norgestimate 0.25 mg-ethinyl 1 tab PO QDAY #28 tab 02/16/18 07/13/18 Rx estradiol 35 mcg tablet levothyroxine 75 mcg tablet 75 mcg PO DAILY #30 tab 02/23/18 07/13/18 Rx amlodipine 2.5 mg tablet 2.5 mg PO DAILY #90 tab 04/20/18 07/13/18 Rx clonazepam 1 mg tablet 0.5 mg PO QDAY PRN #30 tab 04/20/18 07/13/18 Rx hydrocodone 7.5 mg-acetaminophen 1 tab PO Q6H PRN #45 tab 06/07/18 07/13/18 Rx 325 mg tablet escitalopram 10 mg tablet 10 mg PO DAILY #30 tab 06/21/18 07/13/18 Rx Spironolactone 25 mg PO BEDTIME 07/13/18 07/13/18 History Pantoprazole Sodium [Protonix] 40 mg PO QD #60 tab 07/15/18 Rx Sucralfate [Carafate] 1 gm PO AC HS #120 tab 07/15/18 Rx Until the patient that I would do best to try and stay off of opiates to not cause any problems with delayed gastric emptying. 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 Exam - Vitals Vital Signs: Vital Signs Temperature 97.9 F Temperature Source Oral Pulse Rate [Apical] 70 Pulse Rate [Pulse Oximeter 75 Right] Pulse Rate 72 Respiratory Rate 19 Blood Pressure [Right Arm] 123/68 Blood Pressure [Left Arm] 122/67 Blood Pressure 113/64 Pulse Ox 95 Oxygen Flow Rate 1 Oxygen Delivery Method Room Air Height 5 ft 6.5 in Weight 226 lb 2 oz - General General Appearance: No Acute Distress, Cooperative - Eye Eye Exam: POSITIVE: No Scleral Icterus - ENT ENT Exam: POSITIVE: Mucous Membranes Moist - Respiratory Respiratory Exam: POSITIVE: Clear to Auscultation - Bilaterally, Breathing Non Labored - Cardiovascular Cardiovascular Exam: POSITIVE: RRR, No Murmur, No Clicks, No Gallops, No Rubs, No JVD - GI/Abdominal GI/Abdominal Exam: POSITIVE: Normal Bowel Sounds, Non Distended, Soft - Extremities Extremities Exam: POSITIVE: No Clubbing Present, No Edema Present, No Cyanosis Present - Neurological Neurological Exam: POSITIVE: Alert, Oriented x 3, No Facial Droop, Speech Intact / Clear, Moves All Extremities Equally Data Peritnent Studies: 07/13/18 07/13/18 07/13/18 17:07 17:15 17:15 WBC 9.15 Hgb 14.7 Hct 44.8 Plt Count 206 D-Dimer VBG pH 7.42 VBG pCO2 34 L VBG HCO3 22 VBG Base Excess -3 L Sodium 141 Potassium 4.0 Chloride 109 Carbon Dioxide 23 Anion Gap 9 BUN 12 Creatinine 0.5 Estimated GFR > 60 BUN/Creatinine Ratio 24.00 H Glucose 101 Calculated Osmolality 291.0 Lactic Acid Calcium 9.1 Magnesium 2.1 Total Bilirubin 1.2 AST 25 ALT 28 Alkaline Phosphatase 53 CK-MB (CK-2) Troponin I Handheld Troponin I C-Reactive Protein 2.7 H NT-Pro-B Natriuret Pep 75.1 Total Protein 6.3 Albumin 3.9 Globulin 2.4 L Albumin/Globulin Ratio 1.60 Triglycerides Cholesterol LDL Cholesterol, Calc VLDL Cholesterol HDL Cholesterol Cholesterol/HDL Ratio Amylase 50 Lipase 86 TSH Serum HCG, Qual 07/13/18 07/13/18 07/13/18 17:15 17:15 17:15 WBC Hgb Hct Plt Count D-Dimer VBG pH VBG pCO2 VBG HCO3 VBG Base Excess Sodium Potassium Chloride Carbon Dioxide Anion Gap BUN Creatinine Estimated GFR BUN/Creatinine Ratio Glucose Calculated Osmolality Lactic Acid 1.1 Calcium Magnesium Total Bilirubin AST ALT Alkaline Phosphatase CK-MB (CK-2) Troponin I Handheld Troponin I C-Reactive Protein NT-Pro-B Natriuret Pep Total Protein Albumin Globulin Albumin/Globulin Ratio Triglycerides Cholesterol LDL Cholesterol, Calc VLDL Cholesterol HDL Cholesterol Cholesterol/HDL Ratio Amylase Lipase TSH 0.486 Serum HCG, Qual Negative 07/13/18 07/13/18 07/13/18 17:29 17:29 17:29 WBC Hgb Hct Plt Count D-Dimer 0.65 H VBG pH VBG pCO2 VBG HCO3 VBG Base Excess Sodium Potassium Chloride Carbon Dioxide Anion Gap BUN Creatinine Estimated GFR BUN/Creatinine Ratio Glucose Calculated Osmolality Lactic Acid Calcium Magnesium Total Bilirubin AST ALT Alkaline Phosphatase CK-MB (CK-2) 0.65 Troponin I Handheld 0.000 Troponin I C-Reactive Protein NT-Pro-B Natriuret Pep Total Protein Albumin Globulin Albumin/Globulin Ratio Triglycerides Cholesterol LDL Cholesterol, Calc VLDL Cholesterol HDL Cholesterol Cholesterol/HDL Ratio Amylase Lipase TSH Serum HCG, Qual 07/13/18 07/14/18 20:43 02:50 WBC Hgb Hct Plt Count D-Dimer VBG pH VBG pCO2 VBG HCO3 VBG Base Excess Sodium Potassium Chloride Carbon Dioxide Anion Gap BUN Creatinine Estimated GFR BUN/Creatinine Ratio Glucose Calculated Osmolality Lactic Acid Calcium Magnesium Total Bilirubin AST ALT Alkaline Phosphatase CK-MB (CK-2) Troponin I Handheld Troponin I < 0.012 C-Reactive Protein NT-Pro-B Natriuret Pep Total Protein Albumin Globulin Albumin/Globulin Ratio Triglycerides 119 Cholesterol 105 L D LDL Cholesterol, Calc 39.200 VLDL Cholesterol 23 HDL Cholesterol 42 Cholesterol/HDL Ratio 2.50 Amylase Lipase TSH Serum HCG, Qual Patient Problems - Patient Problem List (1) Peptic ulcer disease Current Visit: Yes Status: Acute Code(s): K27.9 - Peptic ulcer, site unspecified, unspecified as acute or chronic, without hemorrhage or perforation Category: Medical (2) Abdominal pain Current Visit: Yes Status: Acute Code(s): R10.9 - Unspecified abdominal pain Category: Medical (3) Nausea and vomiting Current Visit: Yes Status: Resolved Code(s): R11.2 - Nausea with vomiting, unspecified Category: Medical (4) Chest pain Current Visit: Yes Status: Resolved Code(s): R07.9 - Chest pain, unspecified Qualifiers: Chest pain type: unspecified Qualified Code(s): R07.9 - Chest pain, unspecified Category: Medical (5) Tobacco abuse Current Visit: Yes Status: Acute Code(s): Z72.0 - Tobacco use Category: Medical (6) Polycystic ovaries Current Visit: Yes Status: Chronic Category: Medical (7) Congenital dysplasia of hip Current Visit: Yes Status: Chronic Onset Date: 08/19/16 Comment: diagnosed after fall in August Category: Medical (8) Benign hypertension Current Visit: Yes Status: Chronic Category: Medical (9) Anxiety Current Visit: Yes Status: Acute Code(s): F41.9 - Anxiety disorder, unspecified Category: Medical
[2018-07-15 12:36] VITALS: BP 115/71; RESP 18; TEMP 97.6; O2SAT 97
== END 2018-07-15 12:35 | disposition home or self-care (01) ==
LOC: ER 16:51 → MED/SURG 16:51
PROVIDERS: ADMIT Family Medicine; ATTEND Family Medicine